=== PATIENT | female | born 2000 | race Hispanic/Latino ===

== ENCOUNTER 2021-06-01 12:52 | Emergency (ER) | payer MEDICAID, SELFPAY ==
[2021-06-01 12:43] VITALS: BP 130/76; PULSE 120; RESP 16; TEMP 36.2; O2SAT 95
--- NOTE | 2021-06-01 13:18 | PC.NURSE ---
pt asking staff for a reality check. asking to be taken to a [facility]. when told that wasnt possible she told me to make one then. sitter at bedside.
--- NOTE | 2021-06-01 13:20 | ECG_ITS ---
Measurements Intervals [place] Rate: 101 P: 60 MN: 119 QRS: 81 QRSD: 94 T: 43 QT: 348 QTc: 451 Interpretive Statements SINUS TACHYCARDIA WITH SHORT MN INTERVAL BASELINE ARTIFACT- II, III, AVF BORDERLINE ECG Electronically Signed On 06-01-2021 16:26:16 [employer]TER [employer]OLD ROLLING MACHINE by Wes Nicole D.O.
--- NOTE | 2021-06-01 13:22 | ED.PSYCH ---
HPI - Psych General Chief Complaint: Psychiatric Symptoms <Nilo Potts MD - Last Filed: 06/01/21 18:39> Stated Complaint: MANIC <Nilo Potts MD - Last Filed: 06/01/21 18:39> Time Seen by Provider: 06/01/21 13:09 <Nilo Potts MD - Last Filed: 06/01/21 18:39> Source: patient <Nilo Potts MD - Last Filed: 06/01/21 18:39> Limitations: clinical condition <Nilo Potts MD - Last Filed: 06/01/21 18:39> History of Present Illness HPI Narrative: 21-year-old female Patient states, you have to find my evil eye and I feel like I am being manipulated Get any other lucid history from her with regards to psychiatric history, past medical history or substance use and no one who can elaborate is here with her <Nilo Potts MD - Last Filed: 06/01/21 18:39> Related Data Allergies/Adverse Reactions: Allergies Allergy/AdvReac Type Severity Reaction Status Date / Time No Known Allergies Allergy Uncoded 01/27/19 19:05 <Nilo Potts MD - Last Filed: 06/01/21 18:39> Review of Systems Review of Systems: ROS unobtainable: Yes unobtainable due to mental status <Nilo Potts MD - Last Filed: 06/01/21 18:39> [facility] Social History Social History: Social History Substance use type: unknown <Nilo Potts MD - Last Filed: 06/01/21 18:39> Exam Const: General: alert <Nilo Potts MD - Last Filed: 06/01/21 18:39> Nutritional Appearance: thin <Nilo Potts MD - Last Filed: 06/01/21 18:39> HENMT: Head: normal to inspection, no contusions and no hematomas <Nilo Potts MD - Last Filed: 06/01/21 18:39> Eyes: Conjunctivae: conjunctivae normal <Nilo Potts MD - Last Filed: 06/01/21 18:39> EOM: EOMs intact bilaterally <Nilo Potts MD - Last Filed: 06/01/21 18:39> Chest: Chest palpation & inspection: normal inspection of the chest <Nilo Potts MD - Last Filed: 06/01/21 18:39> Resp: Effort & Inspection: normal respiratory effort and not labored <Nilo Potts MD - Last Filed: 06/01/21 18:39> Auscultation: clear to auscultation bilaterally <Nilo Potts MD - Last Filed: 06/01/21 18:39> Cardio: Rate: regular rate and tachycardic <Nilo Potts MD - Last Filed: 06/01/21 18:39> Rhythm: regular rhythm <Nilo Potts MD - Last Filed: 06/01/21 18:39> GI: GI Palp: Yes Soft to palpation, No Guarding due to palpation present (GI) and No Rebound tenderness present <Nilo Potts MD - Last Filed: 06/01/21 18:39> Skin: General skin exam: normal color <Nilo Potts MD - Last Filed: 06/01/21 18:39> Neuro: General: moves all extremities, no focal motor deficits and CN's II-XI intact bilaterally <Nilo Potts MD - Last Filed: 06/01/21 18:39> Extrem: General: normal to inspection <Nilo Potts MD - Last Filed: 06/01/21 18:39> Psych: Appearance: well kempt <Nilo Potts MD - Last Filed: 06/01/21 18:39> Thought content: Yes Paranoid delusions present <Nilo Potts MD - Last Filed: 06/01/21 18:39> Course Course Emergency Course: 1500 medically clear for behavioral eval 1800 seen by Esme, involuntary papers filled out <Nilo Potts MD - Last Filed: 06/01/21 18:39> Received signout on the patient pending transfer to psychiatric facility. Patient been clinically stable throughout remainder of his ER stay. Patient continue be appropriate for transfer. <Anthony Orozco MD - Last Filed: 06/02/21 02:43> Vital Signs Vital signs: Vital Signs Temperature 36.2 C L 06/01/21 12:43 Pulse Rate 120 H 06/01/21 12:43 Respiratory Rate 16 06/01/21 12:43 Blood Pressure 130/76 06/01/21 12:43 Pulse Oximetry 95 06/01/21 12:43 Temperature 36.2 C L 06/01/21 12:43 Pulse Rate 106 H 06/02/21 02:19 Respiratory Rate 16 06/02/21 02:19 Blood Pressure 104/68 06/02/21 02:19 Pulse Oximetry 98 06/02/21 02:19 <Nilo Potts MD - Last Filed: 06/01/21 18
[2021-06-01] MEDS: HALOPERIDOL LACTATE 5 MG/ML VIAL IV PUSH (13:37)
[2021-06-01 13:44] LABS: Basophils Percent Auto 0.5 % (0.2-1.2); Hematocrit 38.9 % (37.0-47.0); Hemoglobin 13.3 g/dL (12.0-15.0); Immature Granulocyte Absolute 0.02 K/mm3 (0.00-0.031); Immature Granulocyte Percent A 0.3 % (0-0.5); Lymphocytes Absolute Auto 1.22 K/mm3 (0.9-3.2); Lymphocytes Percent Auto 16.3 % (18.3-44.2); Mean Corpuscular HGB Conc 34.2 g/dl (32-36); Mean Corpuscular Hemoglobin 29.7 pg (26-34); Mean Corpuscular Volume 86.8 fl (80-100); Monocytes Absolute Auto 0.8 K/mm3 (0.1-0.6); Monocytes Percent Auto 10.7 % (2.6-8.5); Neutrophils Absolute Auto 5.4 K/mm3 (1.3-6.7); Neutrophils Percent Auto 72.2 % (45.5-73.1); Platelet Count Result 334 k/mm3 (150-375); Red Blood Count 4.48 M/mm3 (4.2-5.4); Red Cell Distribution Width 12.4 % (11.5-14.5); White Blood Count 7.5 K/mm3 (4.5-10.0)
[2021-06-01 13:55] LABS: Alanine Aminotransferase 17 U/L (4-35); Albumin Level 4.7 g/dL (3.5-5.1); Alkaline Phosphatase 74 U/L (38-126); Anion Gap 8 mmol/L (8-16); Aspartate Amino Transferase 29 U/L (14-36); Bilirubin,Total 0.8 mg/dL (0.2-1.3); Blood Urea Nitrogen 9 mg/dL (7-17); Calcium 9.6 mg/dL (8.4-10.2); Carbon Dioxide 23 mmol/L (22-30); Chloride 104 mmol/L (98-107); Estimated CRCL calculation 107 ml/min; Estimated Glomerular Filt Rate > 60; Ethanol < 10 mg/dL (<10); Glucose 91 mg/dL (65-110); Potassium 3.5 mmol/L (3.4-5.0); Sodium 135 mmol/L (137-145)
[2021-06-01 15:04] LABS: Amphetamine Screen Urine Negative (Negative); Barbiturate Screen Urine Negative (Negative); Benzodiazepines Screen Urine Negative (Negative); Cannabinoid Screen Urine Positive (Negative); Cocaine Screen Urine Negative (Negative); Methadone Screen Urine Negative (Negative); Opiate Screen Urine Negative (Negative); Phencyclidine Screen Urine Negative (Negative)
[2021-06-01 15:14] LABS: Add Urine Microscopic? YES; Appearance Urine Clear (Clear); Bacteria Urine Trace /hpf; Bilirubin Urine Negative (Negative); Blood Urine Negative (Negative); Color Urine Amber (Yellow); Glucose Urine UA Negative (Negative); Ketones Urine 1+ mg/dL (Negative); Leukocyte Esterase Ur Negative LEU/UL (Negative); Mucus Urine Rare /lpf; Nitrate Urine Positive (Negative); Protein Urine Negative (Negative); RBC Urine 0-2 /hpf (0-2); Specific Grav Ur 1.009 (1.001-1.035); Squamous Epithelial Cell Urine Few /hpf (Few); WBC Urine 0-3 /hpf
--- NOTE | 2021-06-01 15:26 | PC.NURSE ---
family at bedside. covid swab obtained. [facility] contacted. advised that they will not come evaluate pt until covid result is back.
--- NOTE | 2021-06-01 16:00 | PC.NURSE ---
pt yelling out intermittently. once in a rant of italian. family at bedside.
[2021-06-01 16:07] LABS: SARS-CoV-2 RNA PCR Negative
--- NOTE | 2021-06-01 16:14 | PC.NURSE ---
[facility] contacted regarding negative covid test. states will fitness worker and send them out.
--- NOTE | 2021-06-01 17:35 | PC.NURSE ---
crisis at bedside for evaluation
[2021-06-01 19:34] VITALS: BP 104/64; PULSE 113; RESP 19; O2SAT 95
--- NOTE | 2021-06-01 23:59 | PC.NURSE ---
Verified with psych intake at [facility] that they did receive fax sent earlier in the shift.
--- NOTE | 2021-06-02 00:36 | PC.NURSE ---
Spoke with [place] from [facility]. Pt has been accepted to room 5310. Phone number for report is [phone].
--- NOTE | 2021-06-02 00:40 | PC.NURSE ---
called [facility] to request transport to [facility]. ETA [id number]
--- NOTE | 2021-06-02 00:55 | PC.NURSE ---
called [facility] and [facility] to request transport. Not available called [facility] to request transport. [facility] accepted and ETA 1 hour.
--- NOTE | 2021-06-02 00:57 | PC.NURSE ---
cancelled [facility].
--- NOTE | 2021-06-02 02:12 | PC.NURSE ---
[facility] here.
[2021-06-02 02:14] VITALS: BP 104/68; PULSE 76; RESP 18; O2SAT 98
[2021-06-02 02:19] VITALS: BP 104/68; PULSE 106; RESP 16; O2SAT 98
== END 2021-06-02 02:21 ==
PROVIDERS: Emergency Medicine; Emergency Provider Emergency Medicine; PCP Pediatrics
DX: F29 Unspecified psychosis not due to a substance or known physiological condition (principal); Z20.822 Contact with and (suspected) exposure to COVID-19
CPT/HCPCS: 36415; 80053; 80307; 81001; 81025; 85025; 93005; 96365; 96375; 99285; C9803; J1630; U0003; U0005

== ENCOUNTER 2021-06-14 17:59 | Emergency (ER) | payer MEDICAID, SELFPAY ==
[2021-06-14] VITALS (19 sets, daily range): BP systolic 115–127; BP diastolic 66–77; PULSE 114–171; RESP 13–24; TEMP 36.6; O2SAT 98–100
--- NOTE | ~2021-06-14 | XR_ITS ---
EXAMINATION: XR chest 1V portable DATE: 06/14/2021 19:11 INDICATION: Allergic reaction to medications. Chest tightness. TECHNIQUE: A single frontal view of the chest was obtained. COMPARISON: None. FINDINGS: The chest demonstrates clear lungs without pneumonia, pleural effusion, or pneumothorax. Th e heart size is normal. IMPRESSION: 1. No acute cardiopulmonary disease. Reviewed, dictated and finalized at location [facility]. [employer]
--- NOTE | 2021-06-14 18:39 | ECG_ITS ---
Measurements Intervals [place] Rate: 120 P: 73 DC: 96 QRS: 86 QRSD: 89 T: 40 QT: 280 QTc: 397 Interpretive Statements SINUS TACHYCARDIA WITH SHORT [place] INTERVAL INCOMPLETE RIGHT BUNDLE BRANCH BLOCK ABNORMAL ECG Electronically Signed On 06-14-2021 20:10:29 [employer] REPAIR SUPERVISOR by Wes Nicole D.O.
[2021-06-14] MEDS: diphenhydrAMINE HCl INJ 50 MG/ML VIAL IV PUSH (18:40)
--- NOTE | 2021-06-14 18:40 | ED.GENADULT ---
HPI - General Adult General Chief complaint: Allergic Reaction Stated complaint: mouth feels weird from her medications Time Seen by Provider: 06/14/21 18:26 Source: patient Mode of arrival: ambulatory Limitations: no limitations History of Present Illness HPI narrative: Patient is a 21-year-old female complaining of weird sensation in my mouth that started today after restarting her Risperdal. Patient states that she is been off her Risperdal for the past week and started taking it again today, had a similar episode when she was at [facility]. Patient denies any chest pain, shortness of breath, abdominal pain, nausea, vomiting, diarrhea, urinary symptoms, fever or chills. Patient states that she takes Risperdal due to history of schizophrenia. Patient denies any auditory visual hallucinations. Patient denies any suicidal or homicidal thoughts. Related Data Allergies Allergy/AdvReac Type Severity Reaction Status Date / Time No Known Allergies Allergy Uncoded 01/27/19 19:05 Review of Systems Review of Systems: All systems reviewed & are unremarkable except as noted in HPI and below Constitutional: Constitutional: Denies body ache(s), Denies chills, Denies excessive sweating, Denies fatigue, Denies fever(s), Denies headache(s), Denies lethargy, Denies malaise, Denies weakness and Denies weight loss Eyes: Eyes: Denies blurry vision, Denies change in vision and Denies loss of vision ENT: Denies dizziness, Denies ear discharge, Denies headache(s), Denies lip swelling, Denies epistaxis, Denies nasal congestion, Denies neck pain, Denies throat swelling and Denies tongue swelling Cardiovascular: Cardiovascular: Denies chest pain, Denies chest pain at rest, Denies chest pain with activity, Denies diaphoresis, Denies rapid heart rate, Denies edema, Denies irregular heart rhythm, Denies lightheadedness, Denies palpitations, Denies dyspnea and Denies dyspnea on exertion Respiratory: Respiratory: Denies chest congestion, Denies cough, Denies hemoptysis, Denies dyspnea and Denies dyspnea on exertion Gastrointestinal: Gastrointestinal: Denies abdominal pain, Denies melena, Denies hematochezia, Denies diarrhea, Denies nausea, Denies vomiting and Denies hematemesis Musculoskeletal: Musculoskeletal: Denies abnormal gait, Denies deformity, Denies joint swelling, Denies limited range of motion, Denies neck pain and Denies numbness Neurologic: Denies Abnormal speech present, Denies abnormal gait, Denies confusion, Denies dizziness, Denies headache(s), Denies focal weakness, Denies loss of vision, Denies numbness, Denies Other visual disturbances, Denies Sensory deficit (Neuro) and Denies weakness Psychiatric: Psychiatric: Denies confusion, Denies depression, Denies auditory hallucinations, Denies homicidal ideation and Denies suicidal ideation Endocrine: Endocrine: Denies cold intolerance, Denies excessive sweating, Denies fatigue, Denies heat intolerance and Denies palpitations Hematologic/Lymphatic: Hematologic/Lymphatic: Denies easy bleeding and Denies easy bruising Allergic/Immunologic: Allergic/Immunologic: Denies lip swelling, Denies throat swelling and Denies tongue swelling [facility] Social History Social History Substance use type: unknown Comments Past medical history: Schizophrenia, anxiety, depression Family history: Unknown Social history: Non-smoker no EtOH or drug use Exam Const: General: cooperative, healthy appearing, comfortable, no acute distress, well developed, alert and awake; No confusion Orientation/consciousness: oriented to person, oriented to place, oriented to time, patient oriented x3 and No confusion Limitations: no limitations HENMT: Head: normal to inspection, normocephalic and atraumatic Ears: hearing grossly normal bilaterally, TM normal on the right and TM normal on the left General nose exam: Normal external nose present, Normal nares present and No nasal
[2021-06-14] MEDS: PROMETHAZINE HCL 25 MG/ML AMPUL 12.5 MG IV PUSH (18:49)
[2021-06-14] MEDS: SODIUM CHLORIDE 0.9% IV 1,000 ML 999 ML IV CONT (18:50)
[2021-06-14 19:08] LABS: Add Urine Microscopic? NO; Appearance Urine Clear (Clear); Bilirubin Urine Negative (Negative); Blood Urine Negative (Negative); Color Urine Colorless (Yellow); Glucose Urine UA Negative (Negative); Ketones Urine Negative (Negative); Leukocyte Esterase Ur Negative LEU/UL (Negative); Nitrate Urine Negative (Negative); Protein Urine Negative (Negative); Urobilinogen Urine Negative mg/dL (<2.0)
[2021-06-14 19:10] LABS: Specific Grav Ur 1.004 (1.001-1.035)
[2021-06-14 19:44] LABS: Basophils Percent Auto 0.4 % (0.2-1.2); Eosinophils Absolute Auto 0.1 K/mm3 (0-0.3); Eosinophils Percent Auto 0.7 % (0-4.4); Hematocrit 36.6 % (37.0-47.0); Hemoglobin 12.2 g/dL (12.0-15.0); Immature Granulocyte Absolute 0.02 K/mm3 (0.00-0.031); Immature Granulocyte Percent A 0.3 % (0-0.5); Lymphocytes Percent Auto 19.8 % (18.3-44.2); Mean Corpuscular HGB Conc 33.3 g/dl (32-36); Mean Corpuscular Hemoglobin 29.6 pg (26-34); Mean Corpuscular Volume 88.8 fl (80-100); Mean Platelet Volume 9.2 fl (7.4-10.4); Monocytes Absolute Auto 0.7 K/mm3 (0.1-0.6); Monocytes Percent Auto 9.8 % (2.6-8.5); Neutrophils Absolute Auto 5.2 K/mm3 (1.3-6.7); Platelet Count Result 277 k/mm3 (150-375); Red Blood Count 4.12 M/mm3 (4.2-5.4); Red Cell Distribution Width 13.1 % (11.5-14.5); White Blood Count 7.6 K/mm3 (4.5-10.0)
[2021-06-14 19:58] LABS: Alanine Aminotransferase 17 U/L (4-35); Albumin Level 4.1 g/dL (3.5-5.1); Alkaline Phosphatase 69 U/L (38-126); Anion Gap 11 mmol/L (8-16); Aspartate Amino Transferase 24 U/L (14-36); Bilirubin,Total 0.3 mg/dL (0.2-1.3); Blood Urea Nitrogen 9 mg/dL (7-17); Calcium 8.7 mg/dL (8.4-10.2); Carbon Dioxide 23 mmol/L (22-30); Chloride 105 mmol/L (98-107); Estimated CRCL calculation 94 ml/min; Estimated Glomerular Filt Rate > 60; Glucose 92 mg/dL (65-110); Potassium 3.7 mmol/L (3.4-5.0); Sodium 139 mmol/L (137-145)
[2021-06-14] MEDS: LORazepam (*CRX) 1 MG TABLET PO (20:48)
== END 2021-06-14 20:55 | disposition home or self-care (01) ==
PROVIDERS: Emergency Provider Emergency Medicine; PCP Pediatrics
DX: G24.09 Other drug induced dystonia (principal); T43.595A Adverse effect of other antipsychotics and neuroleptics, initial encounter; F20.9 Schizophrenia, unspecified; R00.0 Tachycardia, unspecified; I45.10 Unspecified right bundle-branch block
CPT/HCPCS: 36415; 71045; 80053; 81003; 85025; 93005; 96361; 96374; 96375; 99284; A9270; J1200; J2550; J7030

== ENCOUNTER 2021-11-15 09:13 | Outpatient (CLI) | payer OTHER, SELFPAY ==
--- NOTE | ~2021-11-15 | CT_ITS ---
EXAMINATION: CT sinus wo con DATE: 11/15/2021 09:53 INDICATION: Chronic sinusitis TECHNIQUE: Computed tomography (CT) of the paranasal sinuses was performed without contrast. Iterativ e reconstruction technique was employed. Exam dose: 313.83 mGy-cm total exam DLP. COMPARISON: None FINDINGS: There is mild rightward bowing of the upper portion of the nasal septum. There is soft tissue swelling of the nasal turbinates, more prominent on the right. Grecia bullosa of left middle nasal turbinate. The ostiomeatal units are patent bilaterally. The paranasal sinuses are normally developed and aerated. The mastoid air cells are well-developed and normally aerated. Middle and inner ear apparatus appear normal bilaterally. IMPRESSION: Mild rightward bowing of upper nasal septum Soft tissue swelling of nasal turbinates, right greater than left Grecia bullosa of left middle nasal turbinate Patent paranasal sinuses, ostiomeatal units and mastoid air cells Reviewed, dictated and finalized at [facility]. Reviewed, dictated and finalized at location [facility].
== END 2021-11-15 09:14 | disposition home or self-care (01) ==
PROVIDERS: PCP Physician Assistant; Visit Provider Otolaryngology
DX: J32.9 Chronic sinusitis, unspecified (principal); J34.2 Deviated nasal septum; J34.89 Other specified disorders of nose and nasal sinuses
CPT/HCPCS: 70486